=== PATIENT | male | born 1995 | race Caucasian/White ===

== ENCOUNTER 2017-06-12 06:44 | Emergency (ER) | payer MEDICAID ==
[2017-06-12 07:01] VITALS: BP 125/76
[2017-06-12] MEDS ORDERED: Bacitracin Oint 1 GM U/D Packet TOP ONE (07:14)
[2017-06-12] MEDS ORDERED: Ketorolac 60 MG/2 ML SDV IM ONE (07:14)
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
--- NOTE | 2017-06-14 10:09 | CR ---
EXAM DATE: 06/12/17 PATIENT'S AGE: 22 Patient: RADHA RODRIGUEZ Facility: [place], [place] Site . Site : 1995 Study: XRay Shoulder Right [id number]/7/[id number] 7:40:53 AM Ordering Physician: Vazquez Macedo Final Report: Pain 3 views of the right shoulder. Findings: Normal articulation of the glenohumeral joint without fracture or dislocation. Subacromial spur. Impression: 1. No acute fracture or dislocation. 2. Moderate to large subacromial spur. Dictated by Jelena Crawley MD @ Jun 12 2017 7:45AM (Electronic Signature) Report Signed by Proxy. [facility]PITALVannessa
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
== END 2017-06-12 08:06 | disposition home or self-care (01) ==
LOC: MW.ED 06:44
DX: S40.011A Contusion of right shoulder, initial encounter (principal); S00.03XA Contusion of scalp, initial encounter; F17.210 Nicotine dependence, cigarettes, uncomplicated; V19.9XXA Pedal cyclist (driver) (passenger) injured in unspecified traffic accident, initial encounter
CPT/HCPCS: 73000; 73030; 96372; 99283; J1885; 99282